=== PATIENT | female | born 1990 | race African-American/Black ===

== ENCOUNTER 2018-08-05 22:40 | Emergency (ER) | payer SELFPAY ==
[~2018-08-05] VITALS: Ht 162.6 cm; Wt 64.0 kg
[2018-08-05 22:45] VITALS: BP 109/66
== END 2018-08-05 23:00 | disposition left against medical advice (07) ==
LOC: ER 22:40
DX: F10.129 Alcohol abuse with intoxication, unspecified (principal); Z53.21 Procedure and treatment not carried out due to patient leaving prior to being seen by health care provider; Y90.9 Presence of alcohol in blood, level not specified